=== PATIENT | female | born 1945 | race Caucasian/White ===

== ENCOUNTER 2022-05-28 09:01 | Day surgery (SDC) | payer MEDICARE ==
[2022-05-26 11:57] VITALS: BMI 26.5
[~2022-05-28 09:01] MED LIST: LACTATED RINGERS 1,000 ML IV SCH; LIDOCAINE 1% (10MG/ML) FOR IV START INTRADERMA PRN
[2022-05-28 09:39] VITALS: TEMP 96.6
[2022-05-28] MEDS ORDERED: LIDOCAINE 2% INJ 20 MG/ML (2 ML VIAL) ONE (10:42)
[2022-05-28] MEDS ORDERED: PROPOFOL 10 MG/ML 20 ML VIAL IV ONE (10:42)
--- NOTE | 2022-05-28 10:57 | P.PCN ---
Date of Procedure: 05/28/22 Procedure(s) Performed: BRIEF HISTORY: Patient is a 77 -year-old, pleasant, white female scheduled for an upper endoscopy with a possible dilation as a part of evaluation of intermittent dysphagia to solids for the last 2 months duration. She had 2 episodes of acute dysphagia with meat and bread which spontaneously resolved. Denies any heartburn.. PROCEDURE PERFORMED: Esophagogastroduodenoscopy with dilation. PREOPERATIVE DIAGNOSIS: Intermittent dysphagia to solids. IV sedation per anesthesia. PROCEDURE: After informed consent was obtained, the patient was brought into the endoscopy unit. IV sedation was administered by Anesthesia under continuous monitoring. Initially the Olympus GIF-140 video endoscope was inserted into the mouth. Esophagus intubated without any difficulty. It was gradually advanced into the stomach and duodenum and carefully examined. The bulb and the second part of the duodenum appeared normal. The scope at this time was withdrawn to the stomach, adequately insufflated with air, and upon careful examination, mucosa of the antrum, body, cardia and the fundus appeared normal. The scope was then withdrawn into the esophagus. The GE junction was located at 39 cm from the incisors. There was a distal esophageal Schatzki's ring identified that was dilated using 18 mm TTS balloon for 30 seconds and there was some oozing identified following the dilation and hence further dilation was not performed The esophagus appeared normal.l there was circumferential erythema the GE junction consistent with LA grade a reflux esophagitis There were no erosions or ulcerations seen and the patient tolerated the procedure well. IMPRESSION: 1. Distal esophageal Schatzki's ring status post balloon dilation using 18 mm TTS balloon as described above. 2. Circumferential erythema the GE junction consistent with LA grade A reflux esophagitis 3. Small hiatal hernia RECOMMENDATIONS: The findings of this examination were discussed with the patient as well as his family. She was advised to be on a clear liquid diet today. Recommend a trial of Prilosec 20 mg daily and morning half hour before breakfast for 3 months..
[2022-05-28 11:09] VITALS: RESP 16
[2022-05-28 11:21] VITALS: BP 148/84; PULSE 67
== END 2022-05-28 11:45 | disposition home or self-care (01) ==
LOC: ORWHC2ENDO 09:01
PROVIDERS: ATTEND Internal Medicine Gastroenterology
DX: K22.2 Esophageal obstruction (principal); K21.00 Gastro-esophageal reflux disease with esophagitis, without bleeding; K44.9 Diaphragmatic hernia without obstruction or gangrene
CPT/HCPCS: 43249; J2704; J2001; C1726